=== PATIENT | female | born 1965 | race Caucasian/White ===

== ENCOUNTER → 2020-04-16 15:16 | Outpatient (BNVA) | payer OTHER, SELFPAY | PROVIDERS: PCP Internal Medicine; Visit Provider Surgery | DX: Z76.89 Persons encountering health services in other specified circumstances (principal) ==

== ENCOUNTER → 2020-11-26 15:18 | Outpatient (BNVA) | payer OTHER, SELFPAY | PROVIDERS: PCP Internal Medicine; Referring Provider Internal Medicine; Visit Provider Surgery ==

== ENCOUNTER 2020-12-18 15:07 | Outpatient (REF) | payer OTHER, SELFPAY ==
--- NOTE | ~2020-12-18 | MR_ITS ---
EXAMINATION: MR BREAST WITHOUT AND WITH CONTRAST, BILATERAL CLINICAL INFORMATION: History of left breast cancer treated with lumpectomy and radiation. High-risk screening. COMPARISON: MRI 07/23/2017 TECHNIQUE: Imaging was performed with a dedicated breast coil. Prior to the administration of contrast, bilateral axial T1 and bilateral axial T2 weighted sequences were obtained. After the uneventful administration of?1.5 mL of Gadavist, dynamic contrast-enhanced VIBRANT series through the breasts in the axial plane were performed. Subtracted images were performed and reviewed. A delayed sagittal sequence through both breasts was acquired. Additionally, CAD post-processing, including maximum intensity projections, 3-D reconstructions and kinetic analysis, were performed an independent workstation and reviewed by the interpreting radiologist is a portion of this exam. FINDINGS: The patient's fibroglandular tissue demonstrates moderate background enhancement. LEFT BREAST: Stable architectural distortion along the 3:00 axis at the site of previous lumpectomy. Stable enhancing intramammary lymph node in the 9:00 position. No suspicious masslike or non-masslike enhancement. No abnormal skin thickening or nipple retraction. No abnormal architectural distortion. Review of the T2 weighted images demonstrates no fibrocystic changes or dilated ducts. Review of kinetic images reveals no additional findings. RIGHT BREAST: No suspicious masslike or non-masslike enhancement. No abnormal skin thickening or nipple retraction. No abnormal architectural distortion. Review of the T2 weighted images demonstrates no fibrocystic changes or dilated ducts. Review of kinetic images reveals no additional findings. There is no suspicious internal mammary chain or axillary adenopathy. Limited views of the chest and abdomen are unremarkable. MR/MR breast BI wo/w con IMPRESSION: No MRI specific evidence of new or recurrent malignancy. ASSESSMENT: LEFT BREAST: BI-RADS 2 - Benign Findings. RIGHT BREAST: BI-RADS 1-Negative RECOMMENDATIONS: Clinical follow-up. Continued annual mammographic surveillance. Further breast MRI as risk factors dictate.
== END 2020-12-18 15:08 | disposition home or self-care (01) ==
LOC: HO.MRI 15:07
PROVIDERS: PCP Internal Medicine; Visit Provider Surgery
DX: Z85.3 Personal history of malignant neoplasm of breast (principal); Z92.3 Personal history of irradiation
CPT/HCPCS: 77049; A9585

== ENCOUNTER → 2021-06-10 15:21 | Outpatient (BNVA) | payer OTHER, SELFPAY | PROVIDERS: PCP Internal Medicine; Visit Provider Surgery ==

== ENCOUNTER → 2022-06-30 15:36 | Outpatient (BNVA) | payer OTHER, SELFPAY | PROVIDERS: PCP Internal Medicine; Visit Provider Surgery | DX: Z13.89 Encounter for screening for other disorder (principal) ==

== ENCOUNTER 2022-08-26 08:02 | Outpatient (REF) | payer OTHER, SELFPAY ==
--- NOTE | ~2022-08-26 | MR_ITS ---
EXAMINATION: MR BREAST WITHOUT AND WITH CONTRAST, BILATERAL CLINICAL INFORMATION: High-risk screening. History of left breast cancer treated with lumpectomy and radiation. COMPARISON: MRI 12/18/2020 TECHNIQUE: Imaging was performed with a dedicated breast coil. Prior to the administration of contrast, bilateral axial T1 and bilateral axial T2 weighted sequences were obtained. After the uneventful administration of?8.5 mL of Gadavist, dynamic contrast-enhanced VIBRANT series through the breasts in the axial plane were performed. Subtracted images were performed and reviewed. A delayed sagittal sequence through both breasts was acquired. Additionally, CAD post-processing, including maximum intensity projections, 3-D reconstructions and kinetic analysis, were performed an independent workstation and reviewed by the interpreting radiologist is a portion of this exam. FINDINGS: The patient's fibroglandular tissue demonstrates moderate background enhancement. LEFT BREAST: Stable postsurgical changes, lateral aspect. A T1 hypointense mass in the 9:00 position of the left breast, anterior depth, measures up to 1.8 cm in AP plane and is stable compared to the prior 2020 MRI. This area demonstrates progressive or type I enhancement and is most consistent with a fibroadenoma by imaging appearance. A similar enhancing lesion located in the central portion of the left breast, 5.5 cm from the nipple measures approximately 8 mm in size and is likewise stable compared to the previous exam allowing for some technical differences between studies. No new suspicious nonmass or mass enhancement within the left breast. Review of the T2-weighted images demonstrates no additional findings. Review of the kinetic images demonstrates no additional suspicious findings. RIGHT BREAST: No suspicious masslike or non-masslike enhancement. No abnormal skin thickening or nipple retraction. No abnormal architectural distortion. Review of the T2 weighted images demonstrates no fibrocystic changes or dilated ducts. Review of kinetic images reveals no additional findings. There is no suspicious internal mammary chain or axillary adenopathy. Limited views of the chest and abdomen are unremarkable. MR/MR breast BI wo/w con IMPRESSION: 1. Recommend continued screening mammography. No recent mammogram available in our system. MRI cannot exclude the presence of mammographically detected only early breast cancer. 2. No MRI evidence for new or recurrent malignancy. ASSESSMENT: LEFT BREAST: BI-RADS 2 - Benign Findings. RIGHT BREAST: BI-RADS 1-Negative RECOMMENDATIONS: Clinical follow-up.
== END 2022-08-26 08:03 | disposition home or self-care (01) ==
LOC: HO.MRI 08:02
PROVIDERS: PCP Internal Medicine; Visit Provider Surgery
DX: Z91.89 Other specified personal risk factors, not elsewhere classified (principal); Z85.3 Personal history of malignant neoplasm of breast
CPT/HCPCS: 77049; A9585

== ENCOUNTER 2023-01-05 15:41 | Outpatient (AMB) | payer OTHER, SELFPAY ==
--- NOTE | 2023-01-05 16:02 | A.OFFVIS_ITS ---
Intake Vital Signs 01/05/23 16:09 Height 5 ft 6 in Weight 190 lb BMI 30.7 BP 122/78 Blood Pressure Location Lt brachial Position Sitting Pulse 70 Intake Visit Reasons: 6 month follow up, breast exam Intake Note: Patient is seen in office for 6 month follow up visit, breast exam. Patient c/o: admits to left side tenderness, denies any other concerns Habitat Conservation Planner Required: No Electrodynamicist: Electrodynamicist Present Accompanied by: Self / Same As Patient Allergies No Known Allergies [No Known Allergies*] Allergy (Verified 01/05/23 16:11) Medication List - Last Reconciled 01/06/23 by Michael Robertson MD ascorbate calcium (vitamin C) 500 mg PO DAILY cholecalciferol (vitamin D3) 25 mcg PO DAILY HPI HPI Comments History of Present Illness Details 57-year-old female patient, former patie nt of Drs. Petty and Lowell returning for a breast cancer follow-up examination. She was diagnosed with an infiltrating ductal carcinoma at 2 locations in the left breast and underwent neoadjuvant chemotherapy (Dr. Herrera) with Doxetaxil, carboplatin, trastuzumab, and pertuzumab with Neulasta support for six cycles. She then underwent left breast lumpectomy with needle localization x2 and left axillary sentinel biopsy performed on 08/03/2017 for invasive ductal carcinoma. Two foci of invasive ductal carcinoma, the larger in the 3 o'clock position posterior in the left breast and smaller more anterior in the 4 o'clock position. Pathology demonstrated a 0.5 cm focus of infiltrating ductal carcinoma at 3 o'clock position and a foci of infiltrating ductal carcinoma at the 4 o'clock position measuring 2 mm in diameter. Margins on the initial resection specimen were clear with a minimum of 0.1 cm but margin re-excision was carried out at the time of initial surgery and margins were widely clear. One axillary sentinel node was removed and found to be benign. Receptors were ER/NV/Her2 positive. Rene chopra developed a hematoma postoperatively and underwent ultrasound-guided aspiration on 08/26/2017. 70 mL of bloody fluid was aspirated consistent with old hematoma. She subsequently underwent radiation therapy which was completed on 10/22/2017. She completed a year of Herceptin in early March 2018. She initially took letrozole for approximately 1 month but developed significant bone pain. This was stopped for 1 month and then restarted after which she tolerated medication. She also underwent [facility] genetic testing in 2018 and no deleterious mutations or variance of uncertain significance were identified. Her most recent mammogram dated 05/25/2022 performed at [facility] revealed no mammographic evidence of malignancy (BI-RADS 2). Breast MRI performed on 08/26/2022 revealed no MR evidence of malignancy (BI-RADS 2 left, BI-RADS 1 right). She denies any new breast symptoms in either side and generally feels well. [facility] Medical History History of left breast cancer Surgical History History of lumpectomy of left breast (~07/2017) Hx of ligation of vein Hx of adenoidectomy Hx of tonsillectomy Family History Mother History of lung cancer Hx of cancer of uterus History of bone cancer Brother History of melanoma Maternal Grandfather History of liver cancer Maternal Aunt Hx of myelofibrosis Social History Alcohol intake: current Review of Systems Const All systems reviewed & are unremarkable except as noted in HPI and below Denies nipple discharge Skin/Breast Denies bleeding lesions, Denies breast swelling, Denies breast skin changes, Denies breast pain, Denies breast mass, Denies change in breast shape and Denies nipple discharge Raheem/Lymph Denies lymphadenopathy Physical Exam Vital Signs: Last Vital Signs Pulse 70 01/05/23 16:09 BP 122/78 01/05/23 16:09 BMI result Body Mass Index 30.7 Const General: no acute distress and well developed Nutritional Appearance: well nourished Orientation/consciousness: patient oriented x3 Limitations: no limitations HEENT Head: Yes normocephalic and Yes atraumatic Chest Other: Right breast: No skin change, no tenderness, no palpable mass, no nipple discharge, no nipple dimpling no enlarged lymph nodes. Left breast: Incision in the upper outer quadrant with some surrounding firmness suggestive of postoperative change. No palpable mass, no new skin change, no nipple discharge, no nipple retraction, no enlarged lymph nodes. No evidence of recurrent disease. Resp Effort & Inspection: normal respiratory effort, no audible wheezes, no cough and no respiratory distress Cardio Jugular venous distension: no JVD GI Inspection: Yes normal to inspection Skin General skin exam: no rashes or lesions noted Neuro General: patient oriented x3 Extrem General: Yes no clubbing, cyanosis or edema Assessment & Plan Assessment & Plan (1) History of left breast cancer: Code(s): Z85.3 - Personal history of malignant neoplasm of breast Plan: 57-year-old female patient presenting with a previous left breast invasive ductal carcinoma status post neoadjuvant treatment followed by lumpectomies and sentinel node biopsy, radiation therapy, followed by Herceptin for 1 year and now completing her 5 years of letrozole. Mammogram of 05/25/2022 performed at [facility] revealed no suspicious findings in either breast (BI-RADS 2). MRI from 08/26/2022 revealed no MR evidence of malignancy (BI-RADS 2 left, BI-RADS 1 right). Examination today revealed no suspicious findings in either breast with well-healed incisions in the left breast. She will be due for her annual mammogram in May 2023. We will continue with every other year breast MRI for surveillance. I recommended she follow-up in 1 year for clinical breast examination. She is welcome to call sooner for any new concerns. for follow-up examination. (2) At high risk for breast cancer: Code(s): Z91.89 - Other specified personal risk factors, not elsewhere classified Coding Level of Care Code Est Pt Level 3 (64996) Diagnoses History of left breast cancer Z85.3 At high risk for breast cancer Z91.89
[2023-01-05 16:09] VITALS: BP 122/78; PULSE 70; BMI 30.7
== END 2023-01-05 16:24 | disposition home or self-care (01) ==
PROVIDERS: PCP Internal Medicine; Visit Provider Surgery
DX: Z85.3 Personal history of malignant neoplasm of breast (principal); Z91.89 Other specified personal risk factors, not elsewhere classified
CPT/HCPCS: 99213

== ENCOUNTER → 2023-01-05 15:41 | Outpatient (BNVA) | payer OTHER, SELFPAY | PROVIDERS: PCP Internal Medicine; Visit Provider Surgery ==

== ENCOUNTER 2024-02-10 15:31 | Outpatient (AMB) | payer OTHER, SELFPAY ==
--- NOTE | 2024-02-10 15:36 | A.OFFVIS_ITS ---
Vital Signs 02/10/24 15:47 Height 5 ft 6 in Weight 194 lb 8 oz BMI 31.4 BP 158/78 H Blood Pressure Location Lt brachial Position Sitting Pulse 71 Intake Visit Reasons: Breast exam, 1 year follow up Intake Note: Patient is seen in office for yearly breast exam. Pt c/o: mm:05/31/23 Weigher Alloy Required: No Filtering Machine Tender Helper: Filtering Machine Tender Helper Present Accompanied by: Self / Same As Patient Allergies No Known Allergies [No Known Allergies*] Allergy (Verified 02/10/24 15:46) Medication List - Last Reconciled 02/11/24 by Michael Robertson MD ascorbate calcium (vitamin C) 500 mg PO DAILY cholecalciferol (vitamin D3) 25 mcg PO DAILY HPI Comments Details: 58-year-old female patient, former patient of Dr. Petty and Dr. Etienne returning for a breast cancer follow-up examination. She was previously beth gnosed with left breast infiltrating ductal carcinoma at 2 locations and subsequently underwent neoadjuvant chemotherapy (Dr. Herrera) with Doxetaxil, carboplatin, trastuzumab, and pertuzumab with Neulasta support for six cycles. She then underwent left breast lumpectomy with needle localization x2 and left axillary sentinel biopsy performed on 08/03/2017. Pathology demonstrated a 0.5 cm focus of infiltrating ductal carcinoma at 3 o'clock position and a foci of infiltrating ductal carcinoma at the 4 o'clock position measuring 2 mm in diameter. Margins on the initial resection specimen were clear with a minimum of 0.1 cm but margin re-excision was carried out at the time of initial surgery and margins were widely clear. One axillary sentinel node was removed and found to be benign. Receptors were ER/PA/Her2 positive. Patient developed a hematoma postoperatively and underwent ultrasound-guided aspiration on 08/26/2017. 70 mL of bloody fluid was aspirated consistent with old hematoma. She subsequently underwent radiation therapy which was completed on 10/22/2017. She completed a year of Herceptin in early March 2018. She initially took letrozole for approximately 1 month but developed significant bone pain. This was stopped for 1 month and then restarted after which she tolerated medication. [facility] and no deleterious mutations or v ariance of uncertain significance were identified. Her most recent mammogram of 05/31/2023 revealed stable images of both breasts with no mammographic evidence of malignancy (BI-RADS 2). Breast MRI performed on 08/26/2022 revealed no MR evidence of malignancy (BI-RADS 2 left, BI-RADS 1 right). She is not interested in continuing the breast MRI screening. She denies any new breast symptoms in either side and generally feels well. [facility] Medical History History of left breast cancer Surgical History History of lumpectomy of left breast (~07/2017) Hx of ligation of vein Hx of adenoidectomy Hx of tonsillectomy Family History Mother History of lung cancer Hx of cancer of uterus History of bone cancer Brother History of melanoma Maternal Grandfather History of liver cancer Maternal Aunt Hx of myelofibrosis Social History Alcohol intake: current Review of Systems Const All systems reviewed & are unremarkable except as noted in HPI and below Denies nipple discharge Skin/Breast Denies bleeding lesions, Denies breast swelling, Denies breast skin changes, Denies breast pain, Denies breast mass, Denies change in breast shape and Denies nipple discharge Raheem/Lymph Denies lymphadenopathy Physical Exam Vital Signs: Last Vital Signs Pulse 71 02/10/24 15:47 BP 158/78 H 02/10/24 15:47 BMI result Body Mass Index 31.4 Const General: no acute distress and well developed Nutritional Appearance: well nourished Orientation/consciousness: patient oriented x3 Limitations: no limitations HEENT Head: Yes normocephalic and Yes atraumatic Chest Other: Right breast: No skin change, no tenderness, no palpable mass, no nipple discharge, no nipple dimpling no enlarged lymph nodes. Left breast: Incision in the upper outer quadrant with some surrounding firmness suggestive of postoperative change. No palpable mass, no new skin change, no nipple discharge, no nipple retraction, no enlarged lymph nodes. No evidence of recurrent disease. Resp Effort & Inspection: normal respiratory effort, no audible wheezes, no cough and no respiratory distress Cardio Jugular venous distension: no JVD GI Inspection: Yes normal to inspection Skin General skin exam: no rashes or lesions noted Neuro General: patient oriented x3 Extrem General: Yes no clubbing, cyanosis or edema Assessment & Plan Assessment & Plan (1) History of left breast cancer: Code(s): Z85.3 - Personal history of malignant neoplasm of breast Category: Medical Plan: 58-year-old female patient presenting with a previous left breast invasive ductal carcinoma status post neoadjuvant treatment followed by lumpectomies and sentinel node biopsy, radiation therapy, followed by Herceptin for 1 year and now completing her 5 years of letrozole. Mammogram of 05/31/2023 at [facility] revealed no significant changes with no mammographic evidence of malignancy (BI-RADS 2). One year follow-up screening mammogram is recommended. Examination today revealed no suspicious findings in either breast with a well- healed incision in the left breast. I recommended follow-up in 1 year, sooner p.r.n.. Coding Level of Care Code Est Pt Level 3 (54661) Complex EM visit Add On G2211 Diagnoses History of left breast cancer Z85.3
[2024-02-10 15:47] VITALS: BP 158/78; PULSE 71; BMI 31.4
== END 2024-02-10 15:59 | disposition home or self-care (01) ==
LOC: HO.HGS 15:32
PROVIDERS: PCP Internal Medicine; Visit Provider Surgery
DX: Z85.3 Personal history of malignant neoplasm of breast (principal)
CPT/HCPCS: 99213; G2211

== ENCOUNTER 2025-02-13 15:32 | Outpatient (AMB) | payer OTHER, SELFPAY ==
--- OUTSIDE RECORDS SUMMARY | 2022-05-13 11:30 | XMS_ITS | Continuity of Care Document ---
Author Organization [facility] Address [address] [place] [address] [address] [place] [id number] Phone Care Team Providers Care Furniture Technician Name Role Phone Cale MASTERSON FACS RVT Saleem FUENTES Unavailable Unavailable Allergies, Adverse Reactions, Alerts Substance Reaction Status Criticality No Known Allergies Active No Inform ation Medications Medication Instructions Dosage Effective Dates (start - stop) Status Comments tamoxifen 10 mg tablet - Active Procedures Procedure Date Office/Outpt E&M Established 25 Mins May Advance Directives Directive Yes / No Effective Date File Name No Information Encounters Encounter Description Practice Location Reason(s) For Visit Diagnoses Date Provider Providers Copied on Encounter Office/Outpt E&M Established 25 Mins [facility], [address] [place] [address] [address], [place], [id number], tel:[phone] [facility] Body mass index (BMI) 30.0-30.9, adultVenous insufficiency (chronic) (peripheral) 3 Cale MASTERSON FACS RVT GINA Cutler. [address] [address], [place], [address], [place]. tel:[phone] Referring Provider: Gareth Lama MD , [address] [place] [address], [address]. tel:[phone] Family History Family Member Type Diagnosis Age At Onset No Information Payers Payer name Insurance type Covered democrat ID Authoriza tion(s) [facility] [id number] Social History Type Description Quantity Date Captured Comments Alcohol Use Details Caffeine Use Details Unknown Tobacco Use Status Ex-cigarette smoker 023 Smoking Status Former smoker Smoking Tobacco Use Details Cigarette: Age Stopped: 35 Cigarette: No Details Available Sex Female Vital Signs Date / Time: Height Weight BMI Pulse Rate Blood Pressure Temperature Respiratory Rate Body Surface Area Head Circumference Head Circ. Percentile Wt./Jeffrey. Percentile BMI percentile Pulse Ox Inhaled Ox 4:44 PM 66.00 in 84.822 kg (187.00 lbs) 30.1 8 kg/m eter (2) 1.99 meter(2) Chief Complaint And Reason For Visit No Information Reason For Referral Reason For Referral No Information Plan Of Treatment Date Type Action Status Goal Tobacco cessation counseling completed Goal Diet education completed History Of Present Illness Encounter Date Complaint History Of Prese nt Illness No Information Functional Status Date Functional Assessmen t No Information Instructions Date Instruction Additional Infor mation Continue compression stocking us e Related to Venous Insufficiency (Chronic / Peripheral) Patient education booklet given Related to Venous Insufficiency (Chronic / Peripheral) Giving Encouragement to Exercise Related to Body mass index [BMI] 30.0-30.9, adult Diet education Related to Body mass index [BMI] 30.0-30.9, adult Assessments Type Assessment Date assessment Body mass index [BMI] 30.0-30.9, adult assessment Venous insufficiency (chronic) ( peripheral) Patient Care Teams Name Effective Dates (start - stop) Status Members No Information
--- NOTE | 2025-02-13 15:33 | A.OFFVIS_ITS ---
Vital Signs 02/13/25 15:56 Height 5 ft 6 in Weight 190 lb BMI 30.7 BP 136/67 Blood Pressure Location Lt brachial Position Sitting Pulse 69 Intake Visit Reasons: Breast exam, 1 year follow up Intake Note: Patient is seen in office for yearly breast exam. Pt c/o: denies any concerns Online User Experience Strategist Required: No Circulation Worker: Circulation Worker Present Accompanied by: Self / Same As Patient Allergies No Known Allergies (No Known Allergies*) Allergy (Verified 02/13/25 15:56) Medication List - Last Reconciled 02/15/25 by Michael Robertson MD ascorbate calcium (vitamin C) 500 mg PO DAILY cholecalciferol (vitamin D3) 25 mcg PO DAILY HPI Comments Details: 59-year-old female patient, former patient of Dr. Petty and Dr. Etienne returning for a breast cancer follow-up examination. She was previously di agnosed with left breast infiltrating ductal carcinoma at 2 locations and subsequently underwent neoadjuvant chemotherapy (Dr. Herrera) with Doxetaxil, carboplatin, trastuzumab, and pertuzumab with Neulasta support for six cycles. She then underwent left breast lumpectomy with needle localization x2 and left axillary sentinel biopsy performed on 08/03/2017. Pathology demonstrated a 0.5 cm focus of infiltrating ductal carcinoma at 3 o'clock position and a foci of infiltrating ductal carcinoma at the 4 o'clock position measuring 2 mm in diameter. Margins on the initial resection specimen were clear with a minimum of 0.1 cm but margin re-excision was carried out at the time of initial surgery and margins were widely clear. One axillary sentinel node was removed and found to be benign. Receptors were ER/OK/Her2 positive. Patient developed a hematoma postoperatively and underwent ultrasound-guided aspiration on 08/26/2017. 70 mL of bloody fluid was aspirated consistent with old hematoma. She subsequently underwent radiation therapy which was completed on 10/22/2017. She completed a year of Herceptin in early March 2018. She initially took letrozole for approximately 1 month but developed significant bone pain. This was stopped for 1 month and then restarted after which she tolerated medication. She also underwent [facility] genetic testing in 2019 and no deleterious mutations or variance of uncertain significance were identified. Her most recent mammogram of 06/01/2024 revealed stable images of both breasts with no mammographic evidence of malignancy (BI-RADS 2). Breast MRI performed on 08/26/2022 revealed no MR evidence of malignancy (BI-RADS 2 left, BI-RADS 1 right). She is now considering obtaining a follow-up breast MRI next year, six-month after her mammogram in May. [facility] Medical History History of left breast cancer Surgical History History of lumpectomy of left breast (~07/2017) Hx of ligation of vein Hx of adenoidectomy Hx of tonsillectomy Family History Mother History of lung cancer Hx of cancer of uterus History of bone cancer Brother History of melanoma Maternal Grandfather History of liver cancer Maternal Aunt Hx of myelofibrosis Social History Alcohol intake: current Review of Systems Const All systems reviewed & are unremarkable except as noted in HPI and below Denies nipple discharge Skin/Breast Denies bleeding lesions, Denies breast swelling, Denies breast skin changes, Denies breast pain, Denies breast mass, Denies change in breast shape and Denies nipple discharge Raheem/Lymph Denies lymphadenopathy Physical Exam Vital Signs: Last Vital Signs Pulse 69 02/13/25 15:56 BP 136/67 02/13/25 15:56 BMI result Body Mass Index 30.7 Const General: no acute distress and well developed Nutritional Appearance: well nourished Orientation/consciousness: patient oriented x3 Limitations: no limitations HEENT Head: Yes normocephalic and Yes atraumatic Chest Other: Right breast: No skin change, no tenderness, no palpable mass, no nipple discharge, no nipple dimpling no enlarged lymph nodes. Left breast: Incision in the upper outer quadrant with some surrounding firmness suggestive of postoperative change. No palpable mass, no new skin change, no nipple discharge, no nipple retraction, no enlarged lymph nodes. No evidence of recurrent disease. Resp Effort & Inspection: normal respiratory effort, no audible wheezes, no cough and no respiratory distress Cardio Jugular venous distension: no JVD GI Inspection: Yes normal to inspection Skin General skin exam: no rashes or lesions noted Neuro Other: Mobility Assessment: 1. 3 meter assessment time (seconds) 5 2. Gait observations: Normal balance and gait General: patient oriented x3 Extrem General: Yes no clubbing, cyanosis or edema Assessment & Plan Assessment & Plan (1) History of left breast cancer: Code(s): Z85.3 - Personal history of malignant neoplasm of breast Category: Medical (2) At high risk for breast cancer: Code(s): Z91.89 - Other specified personal risk factors, not elsewhere classified Category: Medical Plan 59-year-old female patient presenting with a previous left breast invasive ductal carcinoma status post neoadjuvant treatment followed by lumpectomies and sentinel node biopsy, radiation therapy, followed by Herceptin for 1 year and now completing her 5 years of letrozole. Mammogram of 06/01/2024 at [facility] revealed no significant changes with no mammographic evidence of malignancy (BI-RADS 2). One year follow-up screening mammogram is recommended. Examination today revealed no suspicious findings in either breast with a well- healed incision in the left breast. I recommended follow-up in 1 year, sooner p.r.n.. Orders: Orders MR breast BI wo/w con 10/29/25 Z85.3 - Personal history of malignant neoplasm of breast, Z91.89 - Other specified personal risk factors, not elsewhere classified Coding Level of Care Code Est Pt Level 3 (99908) Complex EM visit Add On G2211 Diagnoses History of left breast cancer Z85.3 At high risk for breast cancer Z91.89
[2025-02-13 15:56] VITALS: BP 136/67; PULSE 69; BMI 30.7
--- OUTSIDE RECORDS SUMMARY | 2025-02-13 17:10 | XMS_ITS | Encounter Summary ---
Author Organization [facility] Address [address] [place] [address] Care Team Providers Care Installation Coordinator Name Role Phone Gareth Lama MD Primary Care Provider [phone] Encounter Details Date Type Department Care Team (Latest Contact Info) Description 02/16/2024 Lab Requisition [facility] - Main Lab [address] [facility] [place] [place] [address] Gallo Barry MD [address] [address] Encounter for gynecological examination (general) (routine) without abnormal findings Social History Tobacco Use Types Packs/Day Years Used Date Smoking Tobacco: Former Smokeless Tobacco: Never Alcohol Use Standard Drinks/Week Comments Not Asked 2 (1 standard drink = 0.6 oz pur e alcohol) Comments Unknown Sex and Gender Information Value Date Recorded Sex Assigned at Female 05/23/2024 2:50 PM EST Legal Sex Female 9:36 AM EST Gender Identity Female 05/23/2024 2:50 PM EST Sexual Orientation Straight 05/23/2024 2: 50 PM EST documented as of this encounter Plan of Treatment Upcoming Encounters Date Type Department Care Team (Late st Contact Info) Description 09/05/2025 3:30 PM EDT Office Visit [facility] Hematology Oncology [address] [place] [address] Sacha Espinoza MD [address] [place] [address] documented as of this encounter Procedures Procedure Name Priority Date/Time Associated Diagnosis Comments CHLAMYDIA TRACHOMATIS AND NEISSERIA GONORRHOEAE BY TMA, THINPREP Routine 02/16/2024 12:00 AM EST Encounter for gynecological examination (general) (routine) without abnormal findings PAP SMEAR Routine 02/16/2024 12:00 AM EST Encounter for gynecological examination (general) (routine) without abnormal findings documented in this encounter Results * Chlamydia trachomatis and neisseria gonorrhoeae by tma, thinprep (02/16/2024 12:00 AM EST) N. gonorrhoeae, RNA Probe Negative Negative LAB MICROBIOLOGY METHOD 02/17/2024 1:42 PM EST [facility] Chlamydia, RNA Probe Negative Negative LAB MICROBIOLOGY METHOD 02/17/2024 1:42 PM [facility] Brushing/Spatula Cervix uteri structure / Unknown 02/16/2024 02/16/2024 1:21 PM EST us Gallo Barry MD LAB CYTOLOGY ORDERABLES Final Result [facility] [address] [place] [address], * Pap smear (02/16/2024 12:00 AM EST) Interpretation Negative for intraepithelial lesion or malignancy 02/21/2024 3:40 PM [facility] General Categorization Negative 02/21/2024 3:40 PM [facility] Specimen Adequacy Satisfactory for evaluation, endocervical/cortez sformation zone component absent 02/21/2024 3:40 PM [facility] Pap Methodology Liquid Based Pap Test 02/21/2024 3:40 PM [facility] Disclaimer The Pap test is a screening test which carries an inherent false negative rate. These test results should be correlated with the patient's clinical findings and history. This Pap test was processed using an automated screening system. Technical cytopathology services provided by [facility], at [address] [place] [address] (CLIA # [id number]/Amanda Mcdermott MD, Dope Maintenance Worker.) 02/21/2024 3:40 PM EST [facility] Console Pap Interpretation Reported 02/21/2024 3:40 PM EST [facility] Brushing/Spatula Cervix uteri structure / Unknown 02/16/2024 02/16/2024 1:21 PM EST us Gallo Barry MD LAB CYTOLOGY ORDERABLES Final Result [facility] [address] [place] [address], documented in this encounter Visit Diagnoses Diagnosis Encounter for gynecological examination (general) (routine) without abnormal findings documented in this encounter Care Teams Installation Coordinator Relationship Specialty Start Date End Date Gareth Lama MD [address] [place] [id number] PCP - General Internal Medicine 04/19/12 documented as of this encounter
--- OUTSIDE RECORDS SUMMARY | 2025-02-13 17:10 | XMS_ITS | Clinical Summary ---
Author Organization [facility] Address [address] [place] [phone] Phone Care Team Providers Care [employer] Name Role Phone Gareth Lama MD Primary Care Provider [phone] Allergies No known active allergies Medications cholecalciferol (VITAMIN D-3) 25 mcg (1,000 unit) tablet Take 1 tablet (1,000 Units total) by mouth daily. Active Active Problems Problem Noted Date Diagnosed Date Malignant neoplasm of upper- outer quadrant of left breast in female, estrogen receptor positive ([facility] V24, [facility] V28) 09/06/2024 Vitamin D deficiency 09/06/2024 Hot flashes due to tamoxifen 03/18/2022 Anxiety 09/17/2021 Age-related osteoporosis wit hout current pathological fracture 09/10/2021 Osteopenia 09/08/2017 Immunizations Immunization Administration Dates Next Due [email or web address] (ages 12 & older) GUDELIA S-CoV-2 COVID-19, mRNA, LNP-S, jennifer-sucrose, preservative free 02/18/2021 Surgical History Surgery Date Site/Laterality Comments TONSILLECTOMY PROCEDURE:TONSILLECTOMY ADENOIDECTOMY PROCEDURE:ADENOIDECTOMY BREAST LUMPECTOMY PROCEDURE:BREAST LUMPECTOMY Medical History Medical History Date Comments Breast cancer ([facility] V24, [facility] V28) DX:Breast cancer (HCC) Age-related osteoporosis wit hout current pathological fracture 09/10/2021 DX:Age-related osteoporo sis without current pathological fracture Family History Medical History Relation Name Comments Melanoma Brother Heart disease Father Cancer Maternal Grandfather liver Cancer Mother lung & uterine Relation Name Status Comments Brother Father Maternal Grandfather Mother Alive Social History Tobacco Use Types Packs/Day Years Used Date Smoking Tobacco: Former Smokeless Tobacco: Never Alcohol Use Standard Drinks/Week Comments Not Asked 2 (1 standard drink = 0.6 oz pur e alcohol) Comments No Sex and Gender Information Value Date Recorded Sex Assigned at Female 05/23/2024 2:50 PM EST Legal Sex Female 9:36 AM EST Gender Identity Female 05/23/2024 2:50 PM EST Sexual Orientation Straight 05/23/2024 2: 50 PM EST Obstetrics History Para Term AB IAB SAB Ectopic Multiple Livin g Live Births 1 Last Filed Vital Signs Vital Sign Reading Time Taken Comments Blood Pressure 142/76 09/06/2024 3:20 PM EDT Pulse 75 09/06/2024 3:20 PM EDT Temperature 36.7 C (98.1 F) 09/06/2024 3:20 PM EDT Respiratory Rate - - Oxygen Saturation 97% 09/06/2024 3:20 PM EDT Inhaled Oxygen Concentration - - Weight 86.5 kg (190 lb 9.6 oz) 09/06/2024 3:20 P M EDT Height 170.2 cm (5' 7 ) 09/06/2024 3:20 PM EDT Body Mass Index 29.85 09/06/2024 3:20 PM EDT Plan of Treatment Upcoming Encounters Date Type Department Care Team (Late st Contact Info) Description 09/05/2025 3:30 PM EDT Office Visit [facility] Hematology Oncology [address] [place] [phone] Tanner Espinoza MD [address] [place] [phone] Health Maintenance Due Date Last Done Comments Colorectal Cancer Screening: Colonoscopy 1965 Hepatitis B Vaccines (1 of 3 - 19+ 3-dose series) 1984 Pneumococcal Vaccine: 50+ Years (2 of 2 - PCV) 07/12/2012 07/13/2011 RSV Immunization Adult Patients (1 - Risk 50-74 years 1-dose series) 06/14/2015 Cholesterol Screening (Lipid Panel) 03/13/2022 HIV Screening 03/13/2022 Hepatitis C Screening 03/13/2022 Social Influencers of Health Screening 03/13/2022 Depression Screening 04/05/2024 COVID-19 Vaccine ( season) 2024 02/18/2021, 07/26/2020, 06/28/2020 Influenza Vaccine (#1) 2024 , 02/19/2023, 01/30/2022, Additional history exists Breast Cancer Screening 06/01/2026 06/01/19 25, 05/31/2023, 05/26/2022, Additional history exists Cervical Cancer Screening: Pap Smear 02/15/2027 02/16/2024 DTaP,Tdap,and Td Vaccines (3 - Td or Tdap) 02/07/2032 02/06/2022, 07/13/2011 Osteoporosis Screening (Bone Density Screening) 05/26/2032 05/26/2022, 05/23/2021, 05/14/2019, Additional history exists Zoster Vaccines Completed 05/09/2021, 01/03/2021 HIB Vaccines Aged Out No longer eligi ble based on patient's age to complete this topic HPV Vaccines Aged Out No longer eligi ble based on patient's age to complete this topic Hepatitis A Vaccines Aged Out No long er eligible based on patient's age to complete this topic IPV Vaccines Aged Out No longer eligi ble based on patient's age to complete this topic MMR Vaccines Aged Out No longer eligi ble based on patient's age to complete this topic Meningococcal ACWY Vaccine Aged Out N o longer eligible based on patient's age to complete this topic Meningococcal B Vaccine Aged Out No l onger eligible based on patient's age to complete this topic RSV Immunization Patients Under 20 months Aged Out No longer eligible based on patient's age to complete this topic Varicella Vaccines Aged Out No longer eligible based on patient's age to complete this topic Procedures Procedure Name Priority Date/Time Associated Diagnosis Comments MG MAMMO DIGITAL SCREENING W CLARKE BILAT Routine 06/01/2024 8:24 AM EST Encounter for screening mammogram for malignant neoplasm of breast PAP SMEAR Routine 02/16/2024 12:00 AM EST Encounter for gynecological examination (general) (routine) without abnormal findings PAM DEXA AXIAL SKELETON Routine 05/26/2022 12:09 PM EST Asymptomatic menopausal state from Last 3 Months or Most Recently Relevant to Health Maintenance Results * MG Mammo Digital Screening w Clarke bilat (06/01/2024 8:24 AM EST) Anatomical Region Laterality Modality Breast Bilateral Mammography 06/01/2024 11:0 2 AM EST Impressions 06/01/2024 11:12 AM EST No mammographic evidence of new or recurrent malignancy. No suspicious interval change. A negative mammogram in the presence of a clinically suspicious palpable abnormality does not preclude the possibility of malignancy or alter the indications for biopsy. ASSESSMENT: BI-RADS 2: BENIGN RECOMMENDATION(S): 1: Routine screening mammogram BILATERAL in 1 year. -------- FINAL REPORT -------- Dictated By: Merlin Loomis Dictated Date: 06/01/2024 11:02 ET Assigned Physician: Merlin Loomis Reviewed and Electronically Signed By: Merlin Loomis Signed Date: 06/01/2024 11:12 ET Workstation ID: [id number] Transcribed By: Self Edit Transcribed Date: 06/01/2024 11:02 ET Narrative 06/01/2024 11:12 AM EST EXAM: SCREENING MAMMOGRAPHY, BILATERAL HISTORY: SCREENING. Personal history of left breast cancer. Left lumpectomy 2018. COMPARISON: 05/31/2023, 05/25/2022, 05/23/2021 TECHNIQUE: Synthesized CC and MLO projections of each breast. Tomosynthesis of each breast in the CC and MLO projections. ADDITIONAL IMAGING: None Computer-aided detection was employed with the [employer] AI 3-D. TISSUE DENSITY: The breasts are heterogeneously dense, which may obscure small masses. (BI-RADS category C) FINDINGS: RIGHT BREAST: No suspicious mass. No suspicious calcification. No distortion. No suspicious change in the region of 2 biopsy site markers. LEFT BREAST: Stable distortion at the site of previous lumpectomy. No change in the region of 4 separate biopsy site markers. There is an equal density circumscribed macrolobulated mass with dystrophic calcifications. This has a typically benign appearance consistent with degenerating fibroadenoma. No new suspicious left breast finding Procedure Note Merlin Loomis MD - 06/01/2024 EXAM: SCREENING MAMMOGRAPHY, BILATERAL HISTORY: SCREENING. Personal history of left breast cancer. Leftlumpectomy 2018. COMPARISON: 05/31/2023, 05/25/2022, 05/23/2021 TECHNIQUE: Synthesized CC and MLO projections of each breast.Tomosynthesis of each breast in the CC and MLO projections. ADDITIONAL IMAGING: None Computer-aided detection was employed with the i[employer] Ahaali AI 3-D. TISSUE DENSITY: The breasts are heterogeneously dense, which may obscuresmall masses. (BI-RADS category C) FINDINGS: RIGHT BREAST: No suspicious mass. No suspicious calcification. No distortion. Nosuspicious change in the region of 2 biopsy site markers. LEFT BREAST: Stable distortion at the site of previous lumpectomy. No change in theregion of 4 separate biopsy site markers. There is an equal density circumscribed macrolobulated mass withdystrophic calcifications. This has a typically benign appearanceconsistent with degenerating fibroadenoma. No new suspicious left breast finding IMPRESSION: No mammographic evidence of new or recurrent malignancy. No suspicious interval change. A negative mammogram in the presence of a clinically suspicious palpableabnormality does not preclude the possibility of malignancy or alter theindications for biopsy. ASSESSMENT: BI-RADS 2: BENIGN RECOMMENDATION(S): 1: Routine screening mammogram BILATERAL in 1 year. -------- FINAL REPORT -------- Dictated By: Merlin Loomis Dictated Date: 06/01/2024 11:02 ET Assigned Physician: Merlin Loomis Reviewed and Electronically Signed By: Merlin Loomis Signed Date: 06/01/2024 11:12 ET Workstation ID: [id number] Transcribed By: Self Edit Transcribed Date: 06/01/2024 11:02 ET Gallo Barry MD IM BI PROCEDURES Final Result * Pap smear (02/16/2024 12:00 AM EST) Interpretation Negative for intraepithelial lesion or malignancy 02/21/2024 3:40 PM EST [facility] General Categorization Negative 02/21/2024 3:40 PM [facility] Specimen Adequacy Satisfactory for evaluation, endocervical/cortez sformation zone component absent 02/21/2024 3:40 PM [facility] Pap Methodology Liquid Based Pap Test 02/21/2024 3:40 PM [facility] Disclaimer The Pap test is a screening test which carries an inherent false negative rate. These test results should be correlated with the patient's clinical findings and history. This Pap test was processed using an automated screening system. Technical cytopathology services provided by [facility], at [address] [place] [address] (CLIA # [id number]/Amanda Mcdermott MD, Senior Linux Systems Administrator.) 02/21/2024 3:40 PM [facility] Console Pap Interpretation Reported 02/21/2024 3:40 PM [facility] Brushing/Spatula Cervix uteri structure / Unknown 02/16/2024 02/16/2024 1:21 PM EST us Gallo Barry MD LAB CYTOLOGY ORDERABLES Final Result [facility] [address] [place] [address], * [facility] DEXA AXIAL SKELETON (05/26/2022 12:09 PM EST) Anatomical Region Laterality Modality Mammography 05/25/2022 11:4 7 AM EST Narrative 05/26/2022 12:09 PM [facility] Diagnostic Imaging Department [address] [place] [address] Patient: CHRISTIAN TORRE /Age/Sex: 1965 - 56 - F Unit#: [id number] Location/Status: SPDIMAM/REG CLI [facility]em[facility] Ordering Physician: TANNER LANCE MD Pam Dexa Axial Skeleton - 05/25/22 - 1526 HISTORY: The patient is a 56-year-old postmenopausal female with clinical concern for metabolic bone disease. FINDINGS: Dual energy x-ray absorptiometry of the lumbar spine and femurs is performed. The mean bone mineral density at L1-L4 is 1.162 gm/cm2 which is 98% of that of young normals and 103% of that of age matched controls. This yields a T-score of -0.2 and a Z-score of 0.2 and there is therefore no evidence of osteoporosis or osteopenia here. The mean bone mineral density of the femurs bilaterally is 0.949 gm/cm2 which is 94% of that of young normals and 98% of that of age matched controls. This yields a T-score of -0.5 and a Z-score of -0.1 and there is therefore no evidence of osteoporosis or osteopenia here. However, the T-score of the right femoral neck is -1.4 and that of the left femoral neck is -1.1 which is diagnostic of osteopenia. IMPRESSION: 1. Osteopenia. There has been an increase of 6.2% in bone mineral density in the lumbar spine since the prior examination of 05/23/2021. There has been an increase of 0.9% in bone mineral density in the right femur and an increase of 0.7% in bone mineral density in the left femur. 2. FRAX analysis yields a 10-year probability of major osteoporotic fracture of 6.7% and a 10-year probability of hip fracture of 0.5%. Code 24982 Dictating Physician: BRENDA GRAMAJO MD Electronically Signed by: BRENDA GRAMAJO MD Dic Date/Time: 05/26/22 1205 Sign date/Time: 05/26/22 1209 Procedure Note Brenda Gramajo MD - 05/07/2023 [facility] Diagnostic Imaging Department [address] [place] [address] Patient: CHRISTIAN TORRE /Age/Sex: 1965 - 56 - F Unit#: [id number] [facility]onic[facility] Ordering Physician: TANNER LANCE MD [facility] Dexa Axial Skeleton - 05/25/22 - 1526 HISTORY: The patient is a 56-year-old postmenopausal female withclinical concern for metabolic bone disease. FINDINGS: Dual energy x-ray absorptiometry of the lumbar spine and femursis performed. The mean bone mineral density at L1-L4 is 1.162 gm/cm2 which is98% of that of young normals and 103% of that of age matched controls. Thisyields a T-score of -0.2 and a Z-score of 0.2 and there is therefore no evidenceof osteoporosis or osteopenia here. The mean bone mineral density of the femurs bilaterally is 0.949 gm/ao4uvqwp is 94% of that of young normals and 98% of that of age matched controls.This yields a T-score of -0.5 and a Z-score of -0.1 and there is therefore no evidence of osteoporosis or osteopenia here. However, the T-score of theright femoral neck is -1.4 and that of the left femoral neck is -1.1 which is diagnostic of osteopenia. IMPRESSION: 1. Osteopenia. There has been an increase of 6.2% in bone mineral densityin the lumbar spine since the prior examination of 05/23/2021. There has beenan increase of 0.9% in bone mineral density in the right femur and anincrease of 0.7% in bone mineral density in the left femur. 2. FRAX analysis yields a 10-year probability of major osteoporoticfracture of 6.7% and a 10-year probability of hip fracture of 0.5%. Code 36637 Dictating Physician: BRENDA GRAMAJO MD Electronically Signed by: BRENDA GRAMAJO MD Dic Date/Time: 05/26/22 1205 Sign date/Time: 05/26/22 1209 Subramony Subramalexa-Mariel MASTERSON IMG BI PROCEDURES F inal Result from Last 3 Months or Most Recently Relevant to Health Maintenance Insurance [facility] VEENA [place]ENSON [id number] Advance Directives Documents on File Type Date Recorded Patient Diploma Dental Assistant Expl anation Health Care Decision (hx) 09/30/2017 AD FERRIS DIRECTIVE Health Care Decision (hx) 09/30/2017 AD FERRIS DIRECTIVE Health Care Decision (hx) 09/30/2017 AD FERRIS DIRECTIVE Health Care Decision (hx) 09/30/2017 AD FERRIS DIRECTIVE Health Care Decision (hx) 09/30/2017 AD FERRIS DIRECTIVE Health Care Decision (hx) 09/30/2017 AD FERRIS DIRECTIVE Health Care Decision (hx) 09/30/2017 AD FERRIS DIRECTIVE Health Care Decision (hx) 09/30/2017 AD FERRIS DIRECTIVE Health Care Decision (hx) 09/30/2017 AD FERRIS DIRECTIVE Health Care Decision (hx) 09/30/2017 AD FERRIS DIRECTIVE Health Care Decision (hx) 09/30/2017 AD FERRIS DIRECTIVE Care Teams [employer] Relationship Specialty Start Date End Date Gareth Lama MD [address] [place] [phone] PCP - General Internal Medicine 04/19/12
== END 2025-02-13 15:59 | disposition home or self-care (01) ==
LOC: HO.HGS 15:32
PROVIDERS: PCP Internal Medicine; Visit Provider Surgery
DX: Z85.3 Personal history of malignant neoplasm of breast (principal); Z91.89 Other specified personal risk factors, not elsewhere classified
CPT/HCPCS: 99213; G2211